=== PATIENT | female | born 1990 | race Caucasian/White ===

== ENCOUNTER 2017-07-27 13:35 | Inpatient (IN) | payer OTHER ==
[2017-07-27] MEDS: LACTATED RINGER'S 1000 ML IV (14:43)
[2017-07-27 15:17] LABS: HEMOGLOBIN 13.2 g/dl (12.0-16.0); MEAN CORPUSCULAR HEMOGLOBIN 31.4 pg (27.0-33.0); MEAN CORPUSCULAR HGB CONC 34.7 g/dl (32.0-36.5); MEAN CORPUSCULAR VOLUME 90.3 fl (80.0-96.0); PLATELET COUNT, AUTOMATED 150 10^3/uL (150-450); RED BLOOD COUNT 4.21 10^6/uL (4.00-5.40); RED CELL DISTRIBUTION WIDTH 12.7 % (11.5-14.5); WHITE BLOOD COUNT 13.3 10^3/uL (4.0-10.0)
[2017-07-27] MEDS ORDERED: FENTANYL 2MCG/ML ROPIVACAINE 0.2% IN 0.9% NACL 200ML IVBAG As Ordered (15:26)
[2017-07-27] MEDS ORDERED: OXYTOCIN 30 UNITS IN 0.9% NaCl 500ML IV BAG (J2590) As Ordered (15:27)
[2017-07-27 15:50] LABS: AMPHETAMINES URINE REFLEX NEGATIVE (NEGATIVE); BARBITURATES URINE REFLEX NEGATIVE (NEGATIVE); BENZODIAZEPINES URINE REFLEX NEGATIVE (NEGATIVE); CANNABINOIDS URINE REFLEX NEGATIVE (NEGATIVE); COCAINE METABOLITE URINE REFLE NEGATIVE (NEGATIVE); METHADONE URINE REFLEX NEGATIVE (NEGATIVE); OPIATES URINE REFLEX NEGATIVE (NEGATIVE); PHENCYCLIDINE URINE REFLEX NEGATIVE (NEGATIVE)
[2017-07-27] MEDS ORDERED: LACTATED RINGER'S 1000 ML IV (16:15)
[2017-07-27] MEDS ORDERED: EPIDURAL COMMENT XX (16:15)
[2017-07-27] MEDS ORDERED: diphenhydrAMINE INJ 50MG/ML VIAL (J1200) IV (16:15)
[2017-07-27] MEDS ORDERED: REFRIGERATOR IV KEYS XX (16:15)
[2017-07-27] MEDS ORDERED: NALOXONE INJ 0.4 MG/1 ML VIAL (J2310) IV (16:15)
[2017-07-27] MEDS ORDERED: EPIDURAL/PCA KEYS XX (16:15)
[2017-07-27] MEDS: FENTANYL/ROPIVACAINE/NACL BAG 200 ML EPIDURAL (16:15)
[2017-07-27] MEDS ORDERED: ePHEDrine INJ 50 MG/ML VIAL IV (16:15)
[2017-07-27] MEDS ORDERED: ONDANSETRON 4MG/2ML VIAL (J2405) IV ×2 (16:15→20:30)
[2017-07-27] MEDS: LR 1,000 ML IV (16:55)
[2017-07-27] MEDS ORDERED: LR 1,000 ML IV (18:27)
[2017-07-27] MEDS: OXYTOCIN DRIP 30 UNITS in APPROPRIATE DILUENT 1 EA IV ×2 (18:32→20:26)
[2017-07-27] MEDS ORDERED: MOM 30ML SUSPENSION UDC PO (20:30)
[2017-07-27] MEDS ORDERED: METHYLERGONOVINE MALEATE 0.2 MG TAB PO (20:30)
[2017-07-27] MEDS ORDERED: PROMETHAZINE 25 MG TAB PO (20:30)
[2017-07-27] MEDS: IBUPROFEN 800 MG TAB PO (22:56)
[2017-07-27] MEDS: DOCUSATE SODIUM 100 MG CAP PO (22:56)
[2017-07-27] MEDS: DIBUCAINE 1% OINTMENT 30GM TOP (22:56)
[2017-07-28] MEDS: ACETAMINOPHEN 500 MG TAB PO (05:26)
[2017-07-28] MEDS: FENTANYL/ROPIVACAINE/NACL BAG 200 ML EPIDURAL (07:20)
[2017-07-28] MEDS: RHOGAM 300 MCG (1500 IU) INJ (J2790) IM (07:21)
[2017-07-28] MEDS: MEASLES,MUMPS,RUBELLA VACCINE INJ (MMR-II) (90707) SC (07:23)
[2017-07-28] MEDS: IBUPROFEN 800 MG TAB PO (08:51)
[2017-07-28] MEDS: PRENATAL VITAMINS CHEWABLE TABLET PO (08:51)
[2017-07-29] MEDS: IBUPROFEN 800 MG TAB PO (03:20)
== END 2017-07-29 11:34 | disposition home or self-care (01) | DRG 775 ==
LOC: M LDO 13:35 → M LDI 14:14 → M OBS 22:18
PROVIDERS: Student in an Organized Health Care Education/Training Program
PROC: 10E0XZZ Delivery of Products of Conception, External Approach (ICD-10-PCS; principal; 2017-07-27)
PROC: 0KQM0ZZ Repair Perineum Muscle, Open Approach (ICD-10-PCS; 2017-07-27)
PROC: 10907ZC Drainage of Amniotic Fluid, Therapeutic from Products of Conception, Via Natural or Artificial Opening (ICD-10-PCS; 2017-07-27)
DX: O70.1 Second degree perineal laceration during delivery (principal); Z37.0 Single live birth; Z3A.39 39 weeks gestation of pregnancy

== ENCOUNTER 2019-12-10 00:44 | Inpatient (IN) | payer OTHER ==
[2019-12-10] VITALS (7 sets, daily range): BP systolic 97–125; BP diastolic 56–74
[~2019-12-10] VITALS: Ht 167.6 cm; Wt 61.1 kg
[~2019-12-10 00:44] MED LIST: ADVI200C5 PO; COLA100C5 PO; MAPA500T2 PO; PRENTAB9 PO
[2019-12-10] MEDS ORDERED: OXYTOCIN 30 UNITS IN 0.9% NaCl 500ML IV BAG (J2590) As Ordered ONE (01:12)
[2019-12-10] MEDS ORDERED: OXYTOCIN DRIP 30 UNITS in IV 1 EA IV SCH (01:36)
[2019-12-10 01:41] LABS: HEMATOCRIT 37.8 % (36.0-47.0); HEMOGLOBIN 13.3 g/dl (12.0-15.5); MEAN CORPUSCULAR HEMOGLOBIN 31.5 pg (27.0-33.0); MEAN CORPUSCULAR HGB CONC 35.2 g/dl (32.0-36.5); MEAN CORPUSCULAR VOLUME 89.6 fl (80.0-96.0); PLATELET COUNT, AUTOMATED 141 10^3/uL (150-450); RED BLOOD COUNT 4.22 10^6/uL (4.00-5.40); WHITE BLOOD COUNT 14.1 10^3/uL (4.0-10.0)
[2019-12-10] MEDS ORDERED: SIMETHICONE 80 MG CHEW TAB PO PRN (01:45)
[2019-12-10] MEDS ORDERED: RHOGAM 300 MCG (1500 IU) INJ (J2790) IM SCH (01:45)
[2019-12-10] MEDS ORDERED: METHYLERGONOVINE MALEATE 0.2 MG TAB PO PRN (01:45)
[2019-12-10] MEDS ORDERED: CALCIUM CARBONATE 500 MG CHEW U/D PO PRN (01:45)
[2019-12-10] MEDS ORDERED: MOM 30ML SUSPENSION UDC PO PRN (01:45)
[2019-12-10] MEDS ORDERED: DIBUCAINE 1% OINTMENT 30GM TOP PRN (01:45)
[2019-12-10] MEDS ORDERED: ONDANSETRON 4MG/2ML VIAL IV PRN (01:45)
[2019-12-10] MEDS ORDERED: MEASLES,MUMPS,RUBELLA VACCINE INJ (MMR-II) (90707) SC SCH (01:45)
[2019-12-10] MEDS ORDERED: diphenhydrAMINE 25MG CAP PO PRN (01:45)
[2019-12-10] MEDS ORDERED: ANUSOL HC CREAM 30GM TOP PRN (01:45)
--- NOTE | 2019-12-10 01:51 | HPEPDOC ---
Obstetrical History & Physical General Date of Admission Dec 10, 2019 at 01:12 History of Present Illness Patient is a 29yo at 39.0wks by LMP c/w 9wk US. Patient gab q5min [id number]. No LOF or VB, headaches or visual changes. Good movement. Chief Complaint: Contractions, term Information Provided By: Patient : 2 Term: 1 Livin Care Care: Good Care Dating Final EDC: Dec 17, 2019 Final EDC by: LMP Antepartum Course Height (inches): 67 Pre- weight (lbs.): 115 Admission Weight (lbs.): 136 Change in Weight (lbs.): 21 Past Medical History Past Obstetrical History : Past Obstetrical History: Multigravida Type of Delivery: Spontaneous Vaginal Del. 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 Past Medical History Medical History none Surgical History: [place] teeth, Other (arm) Family History Significant Family History: No pertinent family hx Social History Marital Status: Family situation: Spouse/partner home Psychosocial History: No pertinent psych hx * Smoker: non-smoker Alcohol: Denies Abuse Violence Screening Have you been hit/kicked/slapp: No Have you been sexually assault: No Imunizations Tdap status: current Influenza Status: current Allergies Coded Allergies: No Known Allergies (Unverified , 07/27/17) Medications Scheduled Docusate Sodium (Colace) 100 Mg Cap, 100 MG PO DAILY No.137/Iron/Folic Acd ( Vitamin Tablet) 1 Tab Tab, 1 TAB PO DAILY Scheduled PRN Acetaminophen (Mapap) 500 Mg Tab, 1,000 MG PO Q6HP PRN for PAIN Ibuprofen (Advil) 200 Mg Cap, 800 MG PO Q8HP PRN for PAIN Physical Examination Physical Examination GENERAL: Alert and oriented times three. BREAST: . FETUS: at bedside upon exam. HEART RATE: Regular rate and rhythm. LUNGS: Clear to auscultation (CTA). EXTREMITIES: No edema. Laboratory Data [facility] Laboratory Tests 2 12/10/19 01:10: 12/10/19 01:14: Serology Scanned Report Hepatitis B Testing CBC/BMP Urine Culture: No Growth Pertinent Laboratoy Data Blood Type: O+ RBC Antibody Screen: Negative HIV: Negative Hepatitis B: Negative Rapid Plasma Reagin: Nonreactive Rubella: Immune Varicella: Immune Chlamydia/Gonorrhea: Negative Group B Streptococcus: Negative Glucose Tolerance Test: 115 Anatomy Ultrasound Ultrasound Date: Aug 03, 2019 Placenta Location: Posterior Normal Anatomy: Yes Placenta Previa: No Estimated Weight (grams): 323 Steroid Therapy Steroid Therapy: No Vaginal Examination Dilation: complete Effacement: 100% Station: +5 Presentation: Cephalic presentation Tocometer Multi-drug resistant Organism: No history of MDRO Assessment/Plan Assessment Patient is a 29yo at 39.0wks by LMP c/w 9wk US. Admit for labor and expect delivery by . Pain management per patient preference, which was discussed with her. GBS is negative, no need for antibiotics. 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 Diet: clear. Group B Streptococcus (GBS) negative. Labs and intravenous (IV) per unit protocol. Lactated Ringers (LR): Bolus 500 mL, then at 125 mL/hr. Anticipate normal spontaneous delivery (). C-S as appropriate. Pain mgt per patient desire. Karly Rutledge MD Dec 10, 2019 01:51
[2019-12-10] MEDS: IBUPROFEN 800 MG TAB PO PRN ×2 (01:52→09:35)
[2019-12-10] MEDS: ACETAMINOPHEN 500 MG TAB PO PRN ×2 (01:52→22:50)
--- NOTE | 2019-12-10 01:59 | DNPDOC ---
[facility] Delivery Note Delivery Note DATE OF DELIVERY: 12/10/2019 PREDELIVERY DIAGNOSIS: 39-0/7 weeks' gestation and labor. POST DELIVERY DIAGNOSIS: Delivered. PROCEDURE: Spontaneous vaginal delivery. ROAD MACHINE OPERATOR: Dr. Rutledge (Nurse delivery) ANESTHESIA: None. ESTIMATED BLOOD LOSS: 200 mL. FINDINGS: 5 pound 15 ounce 2700gm girl infant, Score 8/9, nuchal cord times 0. DELIVERY SUMMARY: Patient is a 29-year-old 2 now para 2 who was admitted to labor and delivery for active labor for 3hours. Patient SROM clear unknown time. Baby girl head was delivered without difficulty over intact perineum at 0115 by nurse upon arrival to L&D. The nose and mouth were bulb suctioned. No nuchal cord was noted. The shoulders and body followed in a continuous motion. Infant was handed on mother's belly. I arrived at this time. Cord was then clamped x2 and cut after pulsation. Pitocin bolus was started. Perineum and vagina was inspected and found to have a 1st degree laceration. This was repaired with 2-0 chromic. The placenta was then delivered at 0122 spontaneously intact. Cord had a 3 vessel cord. EBL was 200mL. The vagina and perineum were reinspected and no further lacerations were found and hemostasis was good. Fundus was firm. Patient tolerated delivery well. Karly Rutledge MD Dec 10, 2019 01:59
[2019-12-10] MEDS: PRENATAL VITAMINS CHEWABLE TABLET PO SCH (09:34)
[2019-12-10] MEDS: DOCUSATE SODIUM 100 MG CAP PO SCH ×2 (09:34→21:18)
[2019-12-11 05:43] VITALS: BP 109/55
[2019-12-11] MEDS ORDERED: DIBU10OI TOP (07:02)
[2019-12-11] MEDS: DOCUSATE SODIUM 100 MG CAP PO SCH (09:00)
[2019-12-11] MEDS: PRENATAL VITAMINS CHEWABLE TABLET PO SCH (09:00)
== END 2019-12-11 13:40 | disposition home or self-care (01) | DRG 807 ==
LOC: M LDO 00:44 → M LDI 01:12 → M OBS 03:17
PROVIDERS: ADMIT Obstetrics & Gynecology; ATTEND Obstetrics & Gynecology
PROC: 10E0XZZ Delivery of Products of Conception, External Approach (ICD-10-PCS; principal; 2019-12-10)
PROC: 0HQ9XZZ Repair Perineum Skin, External Approach (ICD-10-PCS; 2019-12-10)
DX: O70.0 First degree perineal laceration during delivery (principal); Z37.0 Single live birth; Z3A.39 39 weeks gestation of pregnancy